=== PATIENT | female | born 1960 | race Caucasian/White ===

== ENCOUNTER 2020-11-09 16:12 | Emergency (ER) | payer SELFPAY ==
[2020-11-09 16:22] VITALS: BP 121/77; PULSE 68; TEMP 98.3; BMI 33.5
[2020-11-09] MEDS ORDERED: DIPHTH,PERTUSS(ACELL),TET 0.5 ML DISP.SYRIN IM ONE ×2 (16:47→16:55)
== END 2020-11-09 17:02 | disposition home or self-care (01) ==
LOC: JERFT 16:12
PROC: 3E0234Z Introduction of Serum, Toxoid and Vaccine into Muscle, Percutaneous Approach (ICD-10-PCS; principal; 2020-11-09)
DX: S69.91XA Unspecified injury of right wrist, hand and finger(s), initial encounter (principal)
CPT/HCPCS: 73140-TC-RT-FY; 90715; 99284-25